=== PATIENT | male | born 1965 | race Two or more races ===

== ENCOUNTER 2016-12-21 09:45 | Day surgery (SDC) | payer OTHER ==
[~2016-12-21] VITALS: Ht 175.3 cm; Wt 74.0 kg
[~2016-12-21 09:45] MED LIST: 0.9% Sodium Chloride 1,000 ML IV SCH; LOPE2CAP PO; OMEP40CA36 PO; Sodium Chloride LOK Flush 10 mL Syringe IV PRN; fentaNYL-PF 50 mCg/mL 2 mL Inj IVPUSH PRN
[2016-12-21 11:42] VITALS: BP 107/73; PULSE 52; RESP 14; O2SAT 97
[2016-12-21 13:03] VITALS: BP 115/74; PULSE 67; RESP 18; O2SAT 95
[2016-12-21 13:13] VITALS: BP 132/70; PULSE 76; RESP 17; O2SAT 97
[2016-12-21 13:21] VITALS: BP 111/77; PULSE 69; RESP 17; O2SAT 98
--- NOTE | 2016-12-21 14:20 | ENDO ---
[address] [address] ENDOSCOPY PROCEDURE PATIENT: DUY LUU : 1965 MR#: [id number] ADMIT: 12/21/2016 JOB ID: [id number] DATE: 12/21/2016 PROCEDURE: Esophagogastroduodenoscopy. INDICATION: Gastroesophageal reflux. ASA CLASSIFICATION: II MALLAMPATI SCORE: 2 MEDICATIONS: Versed 3 mg, fentanyl 50 mcg. INSTRUMENT USED: [id number]. PROCEDURE DETAILS: After informed consent was obtained, the patient was brought into the GI suite where he was placed on oxygen via nasal cannula and monitored with continuous pulse oximeter, telemetry, and blood pressure monitoring. A time-out was performed. Then, she was placed in a left lateral decubitus position and a bite block was placed. The standard esophagogastroduodenoscopy scope was inserted into the bite block and advanced under direct visualization to the second portion of duodenum without difficulty. FINDINGS: 1. Normal-appearing duodenal bulb, first and second portion. 2. Normal-appearing pylorus. 3. In the antrum and body stomach, mucosa had a mosaic appearance that suggests gastropathy. Multiple random biopsies were obtained. 4. The antrum looks slightly deformed suggestive of prior peptic ulcer disease. 5. In the distal gastric body, there was an approximately 3-4 mm erosion with erythema at the base. Multiple biopsies were obtained. 6. Multiple random biopsies were obtained throughout the antrum and body site. 7. Retroflexed views in the gastric body revealed a normal-appearing cardia and fundus. 8. The gastroesophageal junction was at approximately 42 cm. There was a short tongue of salmon-colored mucosa arising from the gastroesophageal junction suggestive of Novak's. Multiple biopsies were obtained. Novak's esophagus was otherwise unremarkable. IMPRESSION: 1. Gastric erosion in the distal gastric body. 2. Gastropathy. 3. Slightly irregular gastroesophageal junction. RECOMMENDATIONS: 1. Continue PPI daily. 2. Await biopsy results. 3. Follow up in GI clinic. COMPLICATIONS: None. ESTIMATED BLOOD LOSS: Less than 5 mL.
--- NOTE | 2017-01-02 08:57 | PATH ---
SURGICAL PATHOLOGY Attending Physician:Amrita Segura CASE STATUS: Signed Out * Amended * PATIENT NAME: DUY LUU PID: [id number] : 1965 DATE COLLECTED:12/21/2016 19:55 SPECIMEN: 1: Gastric, Biopsy 2: Gastric, Biopsy 3: Esophagus, Biopsy CLINICAL HISTORY: 1). GASTRIC BIOPSY 2). GASTRIC BODY BIOPSY, EROSION 3). DISTAL ESOPHAGUS BIOPSY FINAL DIAGNOSIS: 1. Gastric Biopsy: Superficial portions of gastric fundic and gastric antral mucosa with chronic active gastritis. Organisms morphologically consistent with H. pylori are present by H&E stain. Negative for dysplasia and neoplasia. 2. Gastric Body Biopsy, Erosion: Superficial portions of gastric fundic and gastric antral mucosa chronic active gastritis. Organisms morphologically consistent with H. pylori are present by H&E stain. Negative for dysplasia and neoplasia. 3. Distal Esophageal Biopsy: Portions of hyperplastic squamous mucosa and portions of inflamed oxyntic mucosa; negative for intestinal metaplasia/Novak's metaplasia. Negative for dysplasia and neoplasia. ICD10 K29.7 This case was reviewed and interpreted by Dr. Salma Del Real. The final diagnosis is unchanged. This amendment is issued in order for the report to cross the interface and be available in the hospital electronic medical record. GROSS DESCRIPTION: The specimen is received in three formalin filled containers labeled with the patient's name. 1). The specimen is sublabeled "gastric" and consists of 3 portions of tissue which aggregate to 0.4 x 0.4 x 0.3 CM. The specimen is entirely submitted in cassette 1A. 2). The specimen is sublabeled "gastric body erosion" and consists of a 0.2 x 0.2 x 0.2 CM portion of tissue which is entirely submitted in cassette 2A. 3). The specimen is sublabeled "distal esophagus" and consists of 2 portions of tissue which aggregate to 0.3 x 0.3 x 0.2 CM. The specimen is entirely submitted in cassette 3A. 12/21/2016 [facility] ICD-9 CODES: CPT CODES: 1: 98835 2: 00247 3: 14149 AMENDMENT(S): Amended: 01/01/2017 by Munira Comer Reason:Miscellaneous The final diagnosis is unchanged. This amendment is issued in order for the report to cross the interface and be available in the hospital electronic medical record. Previous Signout Date: 12/27/2016 Electronically Signed Out Monique Manuel MD [facility] [address], [place] [address] Technical component performed at [facility], [address], [address]
== END 2016-12-21 23:59 | disposition home or self-care (01) ==
LOC: END 09:45
PROVIDERS: ATTEND Internal Medicine Gastroenterology
DX: K21.9 Gastro-esophageal reflux disease without esophagitis (principal); K25.9 Gastric ulcer, unspecified as acute or chronic, without hemorrhage or perforation; K29.50 Unspecified chronic gastritis without bleeding; A04.8 Other specified bacterial intestinal infections
CPT/HCPCS: 43239; 88305; G0500; J7030